=== PATIENT | male | born 2000 | race Asian ===

== ENCOUNTER 2025-05-15 08:05 | Emergency (ER) | payer MEDICAID ==
[~2025-05-15] VITALS: Ht 162.6 cm; Wt 72.7 kg
[2025-05-15 08:23] VITALS: BP 138/80; PULSE 70; RESP 16; TEMP 98.2; O2SAT 98
[2025-05-15] MEDS: IBUPROFEN 600 MG TABLET PO ONE (08:51)
[2025-05-15] MEDS ORDERED: IBUP-1492 PO (08:58)
[2025-05-15] MEDS ORDERED: ACET-3385 PO (08:58)
== END 2025-05-15 09:15 | disposition home or self-care (01) ==
LOC: EMS 08:05
DX: S93.402A Sprain of unspecified ligament of left ankle, initial encounter (principal); F12.90 Cannabis use, unspecified, uncomplicated; Z91.199 Patient's noncompliance with other medical treatment and regimen due to unspecified reason; X50.1XXA Overexertion from prolonged static or awkward postures, initial encounter; Y93.01 Activity, walking, marching and hiking; Y92.89 Other specified places as the place of occurrence of the external cause; Y99.8 Other external cause status
CPT/HCPCS: 99283